=== PATIENT | male | born 1960 | race American Indian/Alaskan Native ===

== ENCOUNTER 2017-08-11 11:53 | Emergency (ER) | payer BC ==
[2017-08-11] MEDS ORDERED: TYLENOL PO ONE (13:29)
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
[2017-08-11 13:51] LABS: Hematocrit 41.6 % (35.5-45.6); Hemoglobin 13.7 gm/dl (11.8-15.2); Mean Corpuscular HGB Conc 33 % (32-34); Mean Corpuscular Hemoglobin 28 pg (28-32); Mean Corpuscular Volume 85 fl (84-94); Platelet Count 144 K/mm3 (140-440); Red Blood Count 4.91 M/mm3 (3.65-5.03); Red Cell Distribution Width 14.1 % (13.2-15.2)
[2017-08-11 14:03] LABS: BUN/Creatinine Ratio 24; Blood Urea Nitrogen 19 mg/dL (9-20); Calcium 8.7 mg/dL (8.4-10.2); Hemolysis Index 4
--- NOTE | 2017-08-11 14:15 | Cat Scan Report ---
FINAL REPORT PROCEDURE: CT HEAD/BRAIN WO CON TECHNIQUE: Computerized tomography of the head was performed without contrast material. HISTORY: fall seizure COMPARISON: No prior studies are available for comparison. FINDINGS: There is no CT evidence of intracranial mass, hemorrhage, acute territorial infarction, or hydrocephalus. The intracranial arteries are symmetric in density. Calvarium is intact. There is a small left maxillary sinus polyp or mucosal retention cyst. IMPRESSION: No CT evidence of acute intracranial abnormality
[2017-08-11] MEDS ORDERED: TORADOL IM ONE (14:59)
[2017-08-11] MEDS ORDERED: K-DUR PO ONE (14:59)
[2017-08-11 15:08] VITALS: BP 117/65
== END 2017-08-11 15:54 | disposition home or self-care (01) ==
LOC: ED 11:53
DX: G40.909 Epilepsy, unspecified, not intractable, without status epilepticus (principal); I10 Essential (primary) hypertension; F31.9 Bipolar disorder, unspecified; R51 Headache
CPT/HCPCS: 36415; 70450; 80048; 80164; 82550; 85027; 96372; 99284; J1885